=== PATIENT | female | born 1990 | race Caucasian/White ===

== ENCOUNTER 2016-12-02 08:04 | Emergency (ER) | payer BC, OTHER ==
[~2016-12-02] VITALS: Ht 152.4 cm; Wt 54.5 kg
[2016-12-02 08:08] VITALS: Ht 152.4 cm; Wt 54.5 kg
[2016-12-02] MEDS ORDERED: ONDANSETRON (ODT) 4 MG TAB ODT STA (08:51)
--- NOTE | 2016-12-02 09:22 | RADRPT ---
PROCEDURE: XR Chest. CLINICAL INDICATION: Chest pain. TECHNIQUE: Single frontal view. COMPARISON: None. FINDINGS: The lungs are clear. The heart size is normal. There is no pleural effusion. There is no pneumothorax. IMPRESSION: 1. Normal chest radiograph. RPTAT: QQ .Remington Byrd MD, Date Time Electronically viewed and signed by .Remington Byrd MD, on 12/02/2016 09:22 .R/
--- NOTE | 2016-12-02 09:23 | RADRPT ---
PROCEDURE: Left breast ultrasound. CLINICAL INDICATION: Left breast pain. TECHNIQUE: High-resolution sonography of the left breast was performed in the axial and sagittal p lanes. COMPARISON: No prior study is available for comparison. FINDINGS: There is no cystic or solid mass. Normal breast parenchyma is present. IMPRESSION: 1. Normal left breast ultrasound. 2. Any further management regarding any breast symptoms should be based upon clinical grounds. RPTAT: QQ .Remington Byrd MD, MD Date Time Electronically viewed and signed by .Remington Byrd MD, MD on 12/02/2016 09:23 .R/
[2016-12-02] MEDS ORDERED: HYDR-906 PO (09:35)
--- NOTE | 2016-12-02 09:54 | ERD ---
ER Documentation Chief Complaint Chief Complaint Complains of chest pain x 2 days HPI This is a 26-year-old female presents to the ER with chest pain over the last few years. Patient states that chest pain is intermittent and when it happens it is a deep and sharp pain that radiates throughout the left breast. Patient has been to many urgent care doctors, however they have not found with the pain is caused by. Patient denies any shortness of breath. Patient states that this morning she woke up and she felt nauseous secondary to the pain. Patient denies any breast redness, tenderness or discharge from her nipple. Her sister does have 2 tumors of her breast, however no other breast cancer in the family. There is also no history of cardiac problems in her family. Denies any fevers or chills. ROS 12 point review of systems was done, all negative except per HPI. Medications Home Meds Active Scripts Hydrocodone/Acetaminophen ([place] 5-325 Tablet) 1 Each Tablet, 1 TAB PO Q6H Y for PAIN, #7 TAB Prov:SAMIRA KEY 12/02/16 Allergies Allergies: Coded Allergies: No Known Allergy (Unverified , 12/02/16) PMhx/Soc Medical and Surgical Hx: pt denies Medical Hx, pt denies Surgical Hx Hx Alcohol Use: No Hx Substance Use: No Hx Tobacco Use: No Physical Exam Vitals Vital Signs Date Time Temp Pulse Resp B/P Pulse Ox O2 Delivery O2 Flow Rate FiO2 12/02/16 08:08 97.7 80 20 108/65 94 Physical Exam GENERAL: The patient is well developed and appropriate for usual state of health , in no apparent distress. HEENT: Atraumatic. Conjunctivae are pink. Pupils equal, round, and reactive to light. Extraocular muscles are grossly intact. Bilateral tympanic membranes are clear with no evidence of erythema, effusion or dulling of the light reflex. The oropharynx is clear with no erythema or exudates. NECK: C-spine is soft and supple. There is no cervical lymphadenopathy. CHEST: Clear to auscultation bilaterally. There are no rales, wheezes or rhonchi. HEART: Regular rate and rhythm. No murmurs, clicks, rubs or gallops. ABDOMEN: Soft, nontender and nondistended. Good bowel sounds. No rebound or guarding. No gross peritonitis. No gross organomegaly or masses. No Riggins sign or McBurney point tenderness. No pulsatile masses. BACK: No midline or flank tenderness. EXTREMITIES: Equal pulses bilaterally. There is no peripheral clubbing, cyanosis or edema. No focal swelling or erythema. Full range of motion. Grossly neurovascularly intact. NEURO: Alert and oriented. Cranial nerves II through XII are intact. Motor strength in all 4 extremities with 5/5 strength. Sensation grossly intact. Normal speech and gait. SKIN: There is no apparent rash or petechia. The skin is warm and dry. Results 24 hrs Current Medications Medications (Trade) Dose Ordered Sig/Robert Route PRN Reason Start Time Stop Time Status Last Admin Dose Admin Ondansetron HCl (Zofran Odt) 4 mg ONCE STAT ODT 12/02/16 08:51 12/02/16 08:53 DC 12/02/16 09:22 [place] [id number] Radiology Main Line: [phone] DIAGNOSTIC IMAGING REPORT Patient: ABBE FERNÁNDEZ : 1990 Age: 26 Sex: F MR #: [id number] DOS: 12/02/16 0000 Ordering MD: SAMIRA KEY PA-C Location: [facility] Room/Bed: PROCEDURE: Left breast ultrasound. CLINICAL INDICATION: Left breast pain. TECHNIQUE: High-resolution sonography of the left breast was performed in the axial and sagittal planes. COMPARISON: No prior study is available for comparison. FINDINGS: There is no cystic or solid mass. Normal breast parenchyma is present. IMPRESSION: 1. Normal left breast ultrasound. 2. Any further management regarding any breast symptoms should be based upon clinical grounds. RPTAT: QQ .Remington Byrd MD, MD Date Time Electronically viewed and signed by .Remington Byrd MD, MD on 12/02/2016 09:23 .R/ CC: SAMIRA KEY [place] [address] Radiology Main Line: [phone] DIAGNOSTIC IMAGING REPORT Patient: ABBE FERNÁNDEZ : 1990 Age: 26 Sex: F MR #: [id number] DOS: 12/02/16 0000 Ordering MD: SAMIRA KEY PA-C Location: [facility] Room/Bed: PROCEDURE: XR Chest. CLINICAL INDICATION: Chest pain. TECHNIQUE: Single frontal view. COMPARISON: None. FINDINGS: The lungs are clear. The heart size is normal. There is no pleural effusion. There is no pneumothorax. IMPRESSION: 1. Normal chest radiograph. RPTAT: QQ .Remington Byrd MD, MD Date Time Electronically viewed and signed by .Remington Byrd MD, on 12/02/2016 09:22 .R/ CC: SAMIRA KEY Procedures/MDM Differential diagnosis includes but is not limited to; STEMI, dissection, pneumothorax, PE, esophageal rupture, tamponade, pneumonia, pericarditis, GERD, musculoskeletal, endocarditis, anxiety. Patient has had this pain over the last few years, this is likely not a cardiac or intrathoracic emergency. EKG was taken [address] elevation no T-wave inversions signed by Dr. Sawyer. X- ray was negative for any intrathoracic abnormality. Suspicion for pulmonary embolism is low. Patient does not have any PERC criteria. Ultrasound of the breast was also normal, there is no evidence of masses or abscesses. Be sent home with short course of [place] and ibuprofen, she was advised to follow-up with the it infrastructure consultant as soon as possible. Patient should return to ER sooner if symptoms worsen. My medical decision making shared with the patient she understands and agrees with plan. Departure Diagnosis: Primary Impression: Chest pain Condition: Stable SAMIRA KEY Dec 02, 2016 09:54
[2016-12-02] MEDS ORDERED: IBUP-1542 PO (10:03)
== END 2016-12-02 10:15 | disposition home or self-care (01) ==
LOC: FTE 08:04
DX: R07.9 Chest pain, unspecified (principal)
CPT/HCPCS: 71010; 76642; 99284; Z7610; 93005

== ENCOUNTER 2018-05-01 19:11 | Emergency (ER) | payer BC ==
[~2018-05-01] VITALS: Ht 152.4 cm; Wt 52.0 kg
[~2018-05-01 19:11] MED LIST: ACET325T33 PO; CIPR-193 PO; HYDR-4011 PO; IBUP-1542 PO; ONDA4TAB8 PO; RANI150T35 PO
[2018-05-01 19:26] VITALS: Ht 152.4 cm; Wt 52.0 kg
[2018-05-01] MEDS ORDERED: IBUPROFEN 800 MG TAB PO ONE (21:30)
[2018-05-01] MEDS ORDERED: LIDOCAINE/MYLANTA 40 ML BTL PO ONE (22:00)
[2018-05-01] MEDS ORDERED: IBUP-1542 PO (22:37)
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
[2018-05-01] MEDS ORDERED: CYCL5TAB PO (23:09)
[2018-05-01 23:14] VITALS: BP 92/58; PULSE 56; RESP 16
== END 2018-05-01 23:15 | disposition home or self-care (01) ==
LOC: E/R 19:11
DX: R07.9 Chest pain, unspecified (principal)
CPT/HCPCS: 71045; 81025; 93005; Z7502; Z7610

== ENCOUNTER 2018-07-05 09:16 | Emergency (ER) | payer BC ==
[~2018-07-05] VITALS: Wt 67.0 kg
[~2018-07-05 09:16] MED LIST changes: -ACET325T33 PO; -CIPR-193 PO; +CYCL5TAB PO; -HYDR-4011 PO; -ONDA4TAB8 PO; -RANI150T35 PO
[2018-07-05 09:21] VITALS: RESP 18
[2018-07-05] MEDS ORDERED: KETOROLAC 30 MG INJ IM STA (11:16)
[2018-07-05] MEDS ORDERED: ONDANSETRON 4 MG INJ IV STA (11:16)
[2018-07-05] MEDS ORDERED: SOD CHLORIDE 0.9% 1,000 ML IV STA (11:16)
[2018-07-05] MEDS ORDERED: DIPHENHYDRAMINE 50 MG INJ IV ONE (11:30)
--- NOTE | 2018-07-05 11:37 | ERD ---
ER Documentation Chief Complaint Chief Complaint FEELS DIZZY AND NAUSEATED X 2 DAYS HPI 27-year-old female with past medical history of questionable depression, anxiety who presents with multiple complaints including migraine type headache, intermittent dizziness, nausea. States she presented to her PMD on Monday and PMD referred her to psychiatrist given admitted feelings of depression. Patient states recently had's state take away her only daughter in November. Yesterday states she has bouts of generalized weakness, dizziness, nausea without vomiting. Also with frontal type headache similar to symptoms of previous migraine. She otherwise denies chest pain, shortness of breath, dyspnea, abdominal pain, diarrhea, urinary symptoms. She denies any suicidal or homicidal ideation, thoughts of self harm. She denies formal diagnosis of depression or any other psychiatric disorder. Has never been on any antipsychotic medications. Has not taking any medications recently for her migraine or other symptoms. Currently on her menstrual cycle. At time examination patient became tearful and anxious. Triage vital signs otherwise unremarkable. ROS All systems reviewed and are negative except as per history of present illness. Medications Home Meds Active Scripts Diphenhydramine Hcl* (Benadryl*) 25 Mg Cap, 25 MG PO Q6 for headache, #30 CAP Prov:GRACE MCGUIRE PA-C 07/05/18 Ondansetron (Ondansetron Odt) 4 Mg Tab.rapdis, 4 MG PO Q6H PRN for NAUSEA AND/OR VOMITING, #10 TAB Prov:GRACE MCGUIRE-C 07/05/18 Naproxen* (Naprosyn*) 500 Mg Tablet, 500 MG PO BID PRN for PAIN AND/OR INFLAMMATION, #30 TAB Prov:GRACE MCGUIRE-C 07/05/18 Ibuprofen* (Motrin*) 600 Mg Tab, 600 MG PO Q6H PRN for PAIN AND OR ELEVATED TEMP, #30 TAB Prov:JEAN-CLAUDE BRYANT MD 05/01/18 Reported Medications Cyclobenzaprine Hcl* (Cyclobenzaprine Hcl*) 5 Mg Tablet, 5 MG PO TID for 10 Days, #30 TAKE 1 TABLET ORALLY 3 TIMES A DAY FOR 2 DAYS THEN AT NIGHT NEEEDED 05/01/18 Allergies Allergies: Coded Allergies: No Known Allergy (Unverified , 07/05/18) PMhx/Soc Hx Neurological Disorder: Yes (MIGRANE) Hx Miscellaneous Medical Probl: Yes (ANEMIA) Hx Alcohol Use: No Hx Substance Use: No Hx Tobacco Use: No FmHx Family History: No diabetes, No coronary disease, No other Physical Exam Vitals Vital Signs Date Temp Pulse Resp B/P (MAP) Pulse Ox O2 O2 Flow FiO2 Time Delivery Rate 07/05/18 63 101/66 14:05 (78) 07/05/18 97.8 75 18 112/75 99 09:21 (87) Physical Exam Const: Tearful, anxious Head: Atraumatic Eyes: Normal Conjunctiva ENT: Normal External Ears, Nose and Mouth. Neck: Full range of motion. No meningismus. Resp: Clear to auscultation bilaterally Cardio: Regular rate and rhythm, no murmurs Abd: Soft, non tender, non distended. Normal bowel sounds Skin: No petechiae or rashes Back: No midline or flank tenderness Ext: No cyanosis, or edema Neur: Awake and alert Psych: Normal Mood and Affect Results 24 hrs Laboratory Tests Test 07/05/18 11:53 POC Beta HCG, Qualitative NEGATIVE Current Medications Medications Dose Sig/Robert Start Time Status Last (Trade) Ordered Route PRN Stop Time Admin Dose Reason Admin Sodium 1,000 ml @ Q1H STAT 07/05/18 DC 07/05/18 Chloride 1,000 mls/hr IV 11:16 11:55 07/05/18 12:15 Ondansetron 4 mg ONCE STAT 07/05/18 DC 07/05/18 HCl (Zofran IV 11:16 11:55 Inj) 07/05/18 11:19 Ketorolac 30 mg ONCE STAT 07/05/18 DC 07/05/18 Tromethamine IM 11:16 11:56 (Toradol) 07/05/18 11:19 25 mg ONCE ONCE 07/05/18 DC 07/05/18 Diphenhydrami IV 11:30 11:55 ne HCl 07/05/18 11:31 (Benadryl) Procedures/MDM 27-year-old female presents with a multitude of complaints. Primary symptom is worsening headache and complains of intermittent dizziness, nausea without vomiting or abdominal pain. Patient admits to depression but is without suicidal homicidal ideation. Referred by PMD recently for psychiatric care for depression. She is having her typical migraine types headache with associated nausea and intermittent dizziness. I have low suspicion for intracranial process requiring further emergent imaging or care. No headache red flags. Neurologic exam without evidence of meningismus, focal neurologic findings. Presentation not consistent with acute intracranial bleed to include SAH (lack of risk factors, headache history). Presentation not consistent with acute [employer] infection to include meningitis or brain abscess, Temporal arteritis unlikely, as is acute angle closure glaucoma given history and physical findings. Presentation not consistent with other acute, emergent causes of headache at this time. Plan to treat symptomatically with pain medication. No indication for imaging/LP at this time. ED course: 1 L of normal saline Headache cocktail Reassessment: reporting improvement in symptoms status post treatment, tolerating p.o. without issue Patient referred by PMD for psychiatric care, reiterated to patient the need to establish this care as soon as possible, patient expressing understanding We will discharge with appropriate pain medications, Zofran, meclizine Return precautions explained DISPOSITION PLAN: We discussed follow up with the patient's primary care doctor within 24 to 48 hours. Patient counseled regarding my diagnostic impression and care plan. Prior to discharge all questions answered. Pt agrees with treatment plan and understands strict return precautions. Precautionary instructions provided including instructions to return to the ER if not improving or for any worsening or changing symptoms or concerns. Disclaimer: Inadvertent spelling and grammatical errors are likely due to EHR/dictation software use and do not reflect on the overall quality of patient care. Also, please note that the electronic time recorded on this note does not necessarily reflect the actual time of the patient encounter. Departure Diagnosis: Primary Impression: Headache Additional Impressions: Depressed Anxiety Condition: Stable Patient Instructions: Self-Care for Headaches, Anxiety Reaction, Depression Additional Instructions: Call your primary care doctor TOMORROW for an appointment during the next 2-3 days.See the doctor sooner or return here if your condition worsens before your appointment time. Please establish care with psychiatric provider as instructed by PMD. GRACE MCGUIRE PA-C July 05, 2018 11:37
[2018-07-05] MEDS ORDERED: BEN25 PO (12:37)
[2018-07-05] MEDS ORDERED: NAPR-985 PO (12:37)
[2018-07-05] MEDS ORDERED: ONDA4TAB14 PO (12:37)
[2018-07-05] MEDS ORDERED: MECL12.574 PO (13:52)
[2018-07-05 14:05] VITALS: BP 101/66; PULSE 63
== END 2018-07-05 14:07 | disposition home or self-care (01) ==
LOC: FTE 09:16
DX: F32.9 Major depressive disorder, single episode, unspecified (principal); R51 Headache; F41.9 Anxiety disorder, unspecified
CPT/HCPCS: 81025; 96361; 96372; 96374; 96375; J1200; J1885; J2405; J7030; Z7502